=== PATIENT | male | born 1950 | race Caucasian/White ===

== ENCOUNTER 2016-12-27 09:34 | Emergency (ER) | payer MEDICARE ==
[~2016-12-27 09:34] MED LIST: DEXTROSE 50%-WATER 50 ML SYRG IV ONE
[2016-12-27] MEDS ORDERED: DEXTROSE 50%-WATER 50 ML SYRG ONE (09:36)
--- NOTE | 2016-12-27 09:56 | ERNOTE ---
Medical Problem HPI - General Time Seen by Provider: 12/27/16 09:36 Source: patient Exam Limitations: no limitations - Immun/Allergies/Home Medications Allergies/Adverse Reactions: Allergies No Known Allergies Allergy (Verified 12/27/16 09:51) Home Medications: HOME MEDICATIONS Lisinopril 10 mg PO DAILY 06/22/13 [Last Taken Unknown] Metoprolol Tartrate 50 mg PO DAILY 06/22/13 [Last Taken Unknown] Ascorbic Acid [Vitamin C] 2,000 mg PO DAILY 12/27/16 [Last Taken Unknown] Aspirin 81 mg PO DAILY 12/27/16 [Last Taken Unknown] Atorvastatin Calcium [Lipitor] 20 mg PO DAILY 12/27/16 [Last Taken Unknown] Cholecalciferol (Vitamin D3) [Vitamin D3] 2,000 unit PO DAILY 12/27/16 [Last Taken Unknown] Insulin Aspart [Novolog] 12 units SC TIDWM 12/27/16 [Last Taken Unknown] Insulin Glargine,Hum.rec.anlog [Lantus] 40 units SC HS 12/27/16 [Last Taken Unknown] Insulin Glargine,Hum.rec.anlog [Lantus] 45 units SC QAM 12/27/16 [Last Taken Unknown] - History of Present History Narrative: Patient was in the outpatient area to have blood drawn when he became diaphoretic. He is a diabetic, took his lantus but no humalog this morning,was fasting for the bloodwork. A rapid response was called, glucose was 28 and the patient received orange juice and glucose tablet. On arrival in the ER patient is receiving D50 and now start to feel better, denies any other symptoms Review of Systems - Review of Systems Constitutional: Absent: recent illness, fever, fussy EYE: Absent: vision changes Respiratory: Absent: shortness of breath Cardiology: Absent: chest pain Gastrointestinal/Abdominal: Absent: nausea, abdominal pain Skin: Present: See HPI Neurological: Absent: weakness, numbness - Patient's Past Medical History Patient History - Medical: Diabetes Type 2 Patient History - Cardiac/Respiratory: COPD, Hypertension, Hyperlipidemia Patient History - Cancer: No Hx of Cancer Patient History - Surgical Procedures: Back Surgery - Social History Smoking Status: Current every day smoker Cigarettes Packs Per Day: 1.5 Physical Exam - Physical Exam General Appearance: Present: wd/wn, alert, no apparent distress Eye Exam: Normal inspection: bilateral, PERRL: bilateral Respiratory: Present: no respiratory distress, no accessory muscle use, lungs clear, decreased breath sounds Cardiovascular/Chest: Present: regular rate, rhythm Gastrointestinal/Abdominal: Present: nontender Neurological Exam: Present: alert, oriented, normal mood/affect Skin Exam: Present: normal color, warm/dry - now ED Progress - Vital Signs Patient's Vital Signs:: I have reviewed the patient's vital signs. - Progress/Reassessment Progress Note-Subjective: 12/27/16 09:54 repeat glucose 207, patient feeling back to normal 12/27/16 10:25 ate breakfast, feeling better Departure - Departure Clinical Impression: Hypoglycemia associated with type 2 diabetes mellitus Disposition: Home self-care Condition: Good Instructions: Hypoglycemia, [id number] Additional Instructions: follow up with your doctor as scheduled Referrals: Sarah Rogel MD [Primary Care Provider] -
[2016-12-27 10:19] VITALS: BP 126/63
--- OUTSIDE RECORDS SUMMARY | 2016-12-27 10:47 | XMS REPORT | Continuity of Care Document ---
:1950 Author Organization [facility] ([facility]) Address [address] [place] [address] Phone [phone] Care Team Providers Name Role Phone Silviano Rubio Primary Care Provider [phone] Source Comments This disclosure is being made pursuant to the Care Everywhere program, applicable federal and state laws, and may not contain all informaitonavailable regarding this patient.[facility] ([facility]) Active Allergies and Adverse Reactions No Active Allergies Current Medications Prescription Sig. Disp. Refills Start Date End Date Status HUM INSULIN NPH/REG take Active INSULIN HM (NOVOLIN subcutaneously. 50 70/30 SC) units in AM, 40 units in PM lisinopril take 10 mg by mouth Active (PRINIVIL) 10 mg daily. tablet Acetaminophen 500 mg take 1,000 mg by Active Cap mouth every 6 hours. Ascorbic Acid take 2,000 mg by Active (VITAMIN C) 2,000 mg mouth daily. TbSR MULTIVITAMINS take by mouth Active (MULTI-VITAMIN PO) daily. Insulin As directed, 100 Each 12 09/07/2009 Active Syringe-Needle U-100 Indications: (INSULIN SYRINGE) Diabetes Mellitus 1/2 mL 30 x 5/16" Syrg metFORMIN take 1 Tab by mouth 60 Tab 3 09/07/2009 Active (GLUCOPHAGE) 500 mg 2 times daily with tablet meals for 120 days. Take two tabs twice a day, Indications: Type 2 Diabetes Mellitus albuterol-ipratropiu use 2 Puffs by 3 Inhaler 3 09/09/2009 Active m (COMBIVENT) 18-103 inhalation 4 times mcg/Actuation daily. pMAP, inhaler Indications: Chronic Obstructive Pulmonary Disease with Bronchospasms metoPROLol (TOPROL take 50 mg by mouth Active XL) 50 mg XL tablet daily. pregabalin (LYRICA) take 1 Cap by mouth 270 Cap 1 12/07/2009 Active 25 mg capsule 3 times daily for 180 days. pMAP, Indications: Fibromyalgia Active Problems Problem Noted Date Screening for unspecified condition 09/07/2009 Other and unspecified disc disorder of unspecified region 02/02/2009 Type II or unspecified type diabetes mellitus without mention of 12/11/2008 complication, not stated as uncontrolled Unspecified essential hypertension 12/11/2008 Chronic hepatitis C without mention of hepatic coma 12/11/2008 Mononeuritis of unspecified site 12/11/2008 Pain in limb 08/04/2008 Infection and inflammatory reaction due to other vascular device, implant, and graft Unspecified osteomyelitis, other specified site 12/24/2007 Other postprocedural status(V45.89) 11/05/2007 Difficulty in walking(719.7) 10/18/2007 Unspecified osteomyelitis, ankle and foot 10/07/2007 Spinal stenosis in cervical region 09/19/2007 Backache, unspecified 09/18/2007 Immunizations Name Dates Previously Given Next Due Influenza, unspecified 07/28/2007 Social History Tobacco Use Types Packs/Day Years Used Date Former Smoker Cigarettes 2 30 Quit: 10/08/2005 Alcohol Use Drinks/Week oz/Week Comments No Stopped ' due to diabetes Last Filed Vital Signs Vital Sign Reading Time Taken Blood Pressure 145/78 09/07/2009 1:08 PM INSULATION APPLICATOR Pulse 114 09/07/2009 1:08 PM INSULATION APPLICATOR Temperature 36.2 C (97.2 F) 09/07/2009 1:08 PM INSULATION APPLICATOR Respiratory Rate 16 12/11/2008 8:46 AM INSULATION APPLICATOR Height 1.79 m (5' 10.47") 09/07/2009 1:08 PM INSULATION APPLICATOR Weight 107.1 kg (236 lb 1.8 oz) 09/07/2009 1:08 PM INSULATION APPLICATOR Body Mass Index 33.43 09/07/2009 1:08 PM INSULATION APPLICATOR Oxygen Saturation - - Plan of Care Health Maintenance Due Date Last Done Comments HCV Screening 1950 Tdap Vaccine 01/29/1959 DIABETIC: Microalbumin 01/29/1966 Td Vaccine 01/29/1966 Colonoscopy 01/29/1998 Zoster Vaccine 2008 Hepatitis B Vaccine (3 of 3 - Twinrix 03/15/2008 10/14/2007, 09/14/2007 Series) DIABETIC: Hemoglobin A1C 03/08/2010 09/07/2009, 12/11/2008 DIABETIC: Cholesterol 09/07/2010 09/07/2009, 12/11/2008, 09/15/2007 Diabetic: Hdl 09/07/2010 09/07/2009, 12/11/2008, 09/15/2007 Diabetic: Ldl 09/07/2010 09/07/2009, 12/11/2008, 09/15/2007 DIABETIC: Triglycerides 09/07/2010 09/07/2009, 12/11/2008, 09/15/2007 Prostate Cancer Screening 09/07/2010 09/07/2009, 09/15/2007 DIABETIC: Foot Exam 03/21/2011 DIABETIC: Retinal Eye Exam 03/21/2011 Pneumococcal Vaccine (1 of 2 - PCV13) 01/29/2013 Influenza Vaccine: Seasonal (#1) 05/08/2016 07/28/2007 Results from Last 3 Months Not on file
--- OUTSIDE RECORDS SUMMARY | 2016-12-27 10:47 | XMS REPORT | Continuity of Care Document ---
:1950 Author Organization [facility] [place] [address] Care Team Providers Name Role Phone Unavailable Primary Care Provider Unavailable Source Comments This disclosure is being made pursuant to the ZeroVM program and maynot contain all information available regarding this patient.[facility] Active Allergies and Adverse Reactions Not on File Current Medications Be aware that medications may not be up to date as of this document. Alwaysverify current medications with the patient. Not on file Active Problems Not on file Social History Tobacco Use Types Packs/Day Years Used Date Never Assessed Plan of Care Health Maintenance Due Date Last Done Comments Retired-Pertussis Vaccine Adult 01/29/1967 Retired-Tetanus Vaccine Adult 01/29/1967 Colonoscopy 01/29/1998 Well Adult Visit 01/29/1998 Zoster Vaccine 60+ 2008 Retired-Pneumococcal 23 Vaccine-65+ yo 01/29/2013 Retired-INFLUENZA VACCINE 06/08/2015 Results from Last 3 Months Not on file
== END 2016-12-27 10:33 | disposition home or self-care (01) ==
LOC: ER 09:34
DX: E09.649 Drug or chemical induced diabetes mellitus with hypoglycemia without coma (principal); T38.3X5A Adverse effect of insulin and oral hypoglycemic [antidiabetic] drugs, initial encounter; Z79.4 Long term (current) use of insulin; Y92.538 Other ambulatory health services establishments as the place of occurrence of the external cause; I10 Essential (primary) hypertension; E78.5 Hyperlipidemia, unspecified; Z72.0 Tobacco use

== ENCOUNTER 2017-09-06 10:33 | Emergency (ER) | payer MEDICARE ==
[2017-09-06 10:49] VITALS: BP 123/66
== END 2017-09-06 11:37 | disposition left against medical advice (07) ==
LOC: ER 10:33
DX: Z53.21 Procedure and treatment not carried out due to patient leaving prior to being seen by health care provider (principal)